=== PATIENT | male | born 1975 | race Caucasian/White ===

== ENCOUNTER 2019-07-06 10:24 | Emergency (ER) | payer MEDICARE, MEDICAID ==
[~2019-07-06] VITALS: Ht 157.5 cm; Wt 170.0 kg
[2019-07-06] MEDS ORDERED: LIDOcaine 1% 30ml preserv. free vial IJ ONE (11:10)
[2019-07-06 11:29] VITALS: BP 138/86
[2019-07-06] MEDS ORDERED: CEPH500C5 PO (11:50)
[2019-07-06] MEDS ORDERED: DOXY100C2 PO (11:50)
== END 2019-07-06 12:29 | disposition home or self-care (01) ==
LOC: ER 10:24
DX: H60.02 Abscess of left external ear (principal); I10 Essential (primary) hypertension; F12.90 Cannabis use, unspecified, uncomplicated; Z88.2 Allergy status to sulfonamides; Z79.2 Long term (current) use of antibiotics; Z79.899 Other long term (current) drug therapy
CPT/HCPCS: 69000; 87070; 99283

== ENCOUNTER 2020-04-04 08:36 | Emergency (ER) | payer MEDICARE, MEDICAID ==
[~2020-04-04] VITALS: Ht 157.5 cm; Wt 151.8 kg
[2020-04-04 08:45] VITALS: BP 127/74
[2020-04-04] MEDS ORDERED: HYDR28CR14 TOP (08:57)
[2020-04-04] MEDS ORDERED: POTA10TA19 PO (08:57)
[2020-04-04] MEDS ORDERED: CEPH-571 PO (08:57)
[2020-04-04] MEDS ORDERED: FURO-150 PO (08:57)
== END 2020-04-04 09:50 | disposition home or self-care (01) ==
LOC: ER 08:36
DX: L03.115 Cellulitis of right lower limb (principal); R60.0 Localized edema; I10 Essential (primary) hypertension; L23.7 Allergic contact dermatitis due to plants, except food; M19.90 Unspecified osteoarthritis, unspecified site; G89.29 Other chronic pain; F12.90 Cannabis use, unspecified, uncomplicated; Z88.2 Allergy status to sulfonamides; Z79.899 Other long term (current) drug therapy
CPT/HCPCS: 99283